=== PATIENT | male | born 1975 | race Caucasian/White ===

== ENCOUNTER 2016-06-07 10:42 | Emergency (ER) | payer MEDICAID ==
[~2016-06-07] VITALS: Ht 162.6 cm; Wt 69.0 kg
[2016-06-07] MEDS ORDERED: MECLIZINE 25MG TABLET PO ONE (14:30)
[2016-06-07 16:43] VITALS: BP 122/80
== END 2016-06-07 16:49 | disposition home or self-care (01) ==
LOC: ER 11:20
DX: R42 Dizziness and giddiness (principal); R11.2 Nausea with vomiting, unspecified; K92.1 Melena
CPT/HCPCS: 70450; 99284; J8597

== ENCOUNTER 2023-07-26 02:15 | Emergency (ER) | payer SELFPAY ==
[~2023-07-26] VITALS: Ht 165.1 cm; Wt 878.0 kg
[2023-07-26 02:27] VITALS: O2SAT 100
[2023-07-26 03:01] LABS: BASOPHILS % 0.2 % (0.0-2.0); EOSINOPHILS % 0.2 % (0.0-5.0); HEMATOCRIT. 43.7 % (42.0-52.0); HEMOGLOBIN. 15.2 g/dL (14.0-18.0); LYMPHOCYTES % 16.3 % (20.0-50.0); MEAN CORPUSCULAR HGB CONC 34.7 g/dL (31.0-37.0); MEAN CORPUSCULAR VOLUME 86.4 fL (80.0-94.0); MEAN PLATELET VOLUME 8.1 fl (7.4-10.4); MONOCYTES % 3.3 % (2.0-8.0); PLATELET 213 x1000/uL (130-400); RED BLOOD CELL COUNT 5.05 mill/uL (4.7-6.1); RED CELL DISTRIBUTION WIDTH 13.3 % (11.6-14.6); WHITE BLOOD COUNT 8.7 x1000/uL (4.5-11.0)
[2023-07-26 03:31] LABS: CHLORIDE 104 mEq/L (98-107); POTASSIUM 3.6 mEq/L (3.5-5.1); SODIUM 139 mEq/L (136-145)
[2023-07-26 03:32] LABS: CARBON DIOXIDE 25 mEq/L (21-32)
[2023-07-26 03:33] LABS: CALCIUM 8.8 mg/dL (8.7-10.4)
[2023-07-26 03:37] LABS: GLUCOSE 136 mg/dL (70-105)
[2023-07-26 03:38] LABS: UREA NITROGEN BLOOD 21 mg/dL (9-23)
[2023-07-26 03:39] LABS: ALANINE AMINOTRANSFERASE 33 IU/L (10-49); ALBUMIN 4.3 g/dL (3.2-4.8); ASPARTATE AMINOTRANSFERASE 25 IU/L (<34)
[2023-07-26 03:40] LABS: BILIRUBIN DIRECT 0.1 mg/dL (<=3.0); BILIRUBIN TOTAL 0.4 mg/dL (0.1-1.0); PROTEIN TOTAL 7.1 g/dL (6.0-8.3)
[2023-07-26 03:59] LABS: TROPONIN I HIGH SENSITIVITY < 4 ng/L (3.0-53)
[2023-07-26 05:40] LABS: CLARITY URINE CLEAR (CLEAR); COLOR URINE YELLOW (YELLOW); GLUCOSE URINE NEGATIVE (NEGATIVE); KETONES URINE NEGATIVE (NEGATIVE); LEUKOCYTE ESTERASE URINE NEGATIVE (NEGATIVE); NITRITE URINE NEGATIVE (NEGATIVE); OCCULT BLOOD URINE NEGATIVE (NEGATIVE); PH URINE 6.5 (4.5-8.0); PROTEIN URINE 1+ (NEGATIVE); SPECIFIC GRAVITY URINE 1.027 (1.005-1.030); UROBILINOGEN URINE 0.2 E.U./dL (0.2-1.0)
[2023-07-26 06:00] LABS: BACTERIA URINE NONE SEEN; RBC URINE 0-2 /hpf (0-2); SQUAMOUS EPITHELIAL CELL URINE FEW /lpf (RARE/1+); WBC URINE 0-2 /hpf (0-2)
[2023-07-26] MEDS: IOHEXOL-300 100 ML BOTTLE ONE (07:04)
[2023-07-26] MEDS ORDERED: METR-167 MT (09:06)
[2023-07-26] MEDS ORDERED: AMOX1TAB16 MT (09:06)
[2023-07-26] MEDS: METRONIDAZOLE 500MG TABLET PO ONE (09:40)
[2023-07-26] MEDS: AMOXICILLIN/POTASSIUM CLAVULANATE 875/125MG TAB PO ONE (09:40)
[2023-07-26 10:50] VITALS: BP 133/74; PULSE 60; RESP 20; TEMP 98
== END 2023-07-26 11:11 | disposition home or self-care (01) ==
LOC: ER 02:15 → EDBD 02:15 → ER 11:11
DX: R10.32 Left lower quadrant pain (principal); R11.0 Nausea
CPT/HCPCS: 80076; 80048; 81003; 85025; 84484; 36415; 74177; 93005; 99285; Q9967; Z7610 ×2